=== PATIENT | male | born 1975 | race Caucasian/White ===

== ENCOUNTER 2018-05-19 23:27 | Emergency (ER) | payer OTHER ==
[~2018-05-19] VITALS: Ht 182.9 cm; Wt 86.2 kg
[2018-05-19 23:41] VITALS: BP 120/84
--- NOTE | 2018-05-20 00:09 | Emergency Room Report ---
History of Present Illness General Chief Complaint: Laceration Source: Patient Present Illness HPI Is a 42-year-old male who is right-hand dominant. He presents with chief point of laceration to his thumb and index finger. He was cleaning dishes at the restaurant. There was a broken stem from a glass. He try to pull it up but it was stuck and he in the slicing his fingers. This occurred just prior to arrival. Bleeding is stopped with the spray and pressure. No nausea no vomiting. No other injury. Pain is throbbing nature. 5 out of 10. Denies any other complaint. Pressure made it better. Allergies: Coded Allergies: No Known Allergies (Unverified , 05/19/18) Patient History Past Medical History: see triage record, old chart reviewed Past Surgical History: none Pertinent Family History: none Social History: Denies: smoking Immunizations: UTD Reviewed Nursing Documentation: PMH: Agreed; PSxH: Agreed Nursing Documentation-PMH Past Medical History: No Stated History Review of Systems Eye: Denies: eye pain, blurred vision ENT: Denies: ear pain, nose congestion, throat swelling Respiratory: Denies: cough, shortness of breath Cardiovascular: Denies: chest pain, palpitations Gastrointestinal: Denies: abdominal pain, diarrhea, nausea, vomiting Musculoskeletal: Denies: back pain, joint pain Skin: Denies: rash Neurological: Denies: headache, numbness Endocrine: Denies: increased thirst, increased urine Hematologic/Lymphatic: Denies: easy bruising All Other Systems: negative except mentioned in HPI Physical Exam Vital Signs Date Time Temp Pulse Resp B/P (MAP) Pulse Ox O2 Delivery O2 Flow Rate FiO2 05/19/18 23:29 98.1 86 16 120/84 97 05/19/18 23:41 Room Air vitals normal Sp02 EP Interpretation: reviewed, normal General Appearance: well appearing, no apparent distress, alert Head: normocephalic, atraumatic Eyes: bilateral eye PERRL, bilateral eye EOMI ENT: hearing grossly normal, normal pharynx Neck: full range of motion, supple, no meningismus Respiratory: chest non-tender, lungs clear, normal breath sounds Cardiovascular #1: regular rate, rhythm, no murmur Gastrointestinal: normal bowel sounds, non tender, no mass, no organomegaly, no bruit, non-distended Musculoskeletal: back normal, gait/station normal, normal range of motion, other - Left thumb. There is a 1 cm well approximated laceration over the pad. Neurologic: alert, oriented x3 Psychiatric: mood/affect normal Skin: warm/dry Procedures Laceration/Wound Repair Laceration/Wound Repair : Consent: Verbal Wound Location: upper extremity Wound's Depth, Shape: superficial Wound Length (cm): 2 Wound Explored: clean Wound Repaired With: Dermabond Patient Tolerated: Well Complications: None Medical Decision Making Diagnostic Impression: Primary Impression: Laceration of finger of left hand Qualified Codes: S61.012A - Laceration without foreign body of left thumb without damage to nail, initial encounter ER Course Patient presents with laceration of his fingers. Superficial. I closed with a Kwan. No evidence of any foreign body. Tetanus up-to-date. We'll discharge home. Last Vital Signs Date Time Temp Pulse Resp B/P (MAP) Pulse Ox O2 Delivery O2 Flow Rate FiO2 05/19/18 23:41 98.0 86 16 120/84 97 Room Air Status: improved Disposition: HOME, SELF-CARE Condition: Stable Patient Instructions: Laceration Care, Adult Additional Instructions: Follow-up with workman's comp doctor in 2-3 days for recheck. Return if worse. Do not put ointment on skin adhesive. Keep dry. Return if worse. Barrett Leggett MD May 20, 2018 00:09
[2018-05-20 00:20] VITALS: BP 120/84
== END 2018-05-20 00:17 | disposition home or self-care (01) ==
LOC: EMR 23:50
DX: S61.012A Laceration without foreign body of left thumb without damage to nail, initial encounter (principal); S61.211A Laceration without foreign body of left index finger without damage to nail, initial encounter; W25.XXXA Contact with sharp glass, initial encounter; Y93.9 Activity, unspecified; Y92.9 Unspecified place or not applicable; Y99.0 Civilian activity done for income or pay
CPT/HCPCS: 99283

== ENCOUNTER 2018-05-25 14:50 | Emergency (ER) | payer OTHER ==
[~2018-05-25] VITALS: Ht 182.9 cm; Wt 86.2 kg
[2018-05-25] MEDS ORDERED: BACITRACIN-P28.35 GM TP (15:18)
--- NOTE | 2018-05-25 15:18 | Emergency Room Report ---
History of Present Illness General Chief Complaint: wound check Present Illness HPI 42-year-old male patient presents ER requesting wound check for clearance return to work. Patient was seen here ago for laceration on left hand of thumb and index finger. Reports was repaired with Dermabond sutures placed. denies loss of range of motion. Denies erythema or edema. reports right-hand dominant. Reports was sent here by his job for clearance to return to work. denies worsening of pain. Denies erythema or edema. denies fever, chest pain, shortness of breath. Allergies: Coded Allergies: No Known Allergies (Unverified , 05/19/18) Patient History Past Medical History: see triage record Reviewed Nursing Documentation: PMH: Agreed; PSxH: Agreed Review of Systems All Other Systems: negative except mentioned in HPI Physical Exam Vital Signs Date Time Temp Pulse Resp B/P (MAP) Pulse Ox O2 Delivery O2 Flow Rate FiO2 05/25/18 15:10 98.2 87 16 112/73 96 Room Air Sp02 EP Interpretation: reviewed, normal General Appearance: well appearing, no apparent distress, alert, GCS 15, non- toxic Head: normocephalic, atraumatic Eyes: bilateral eye normal inspection, bilateral eye PERRL ENT: hearing grossly normal, normal pharynx, no angioedema, normal voice, uvula midline, moist mucus membranes Neck: full range of motion Respiratory: lungs clear, normal breath sounds, no rhonchi, no respiratory distress, no accessory muscle use, no wheezing, speaking full sentences Cardiovascular #1: regular rate, rhythm, no edema Cardiovascular #2: 2+ radial (R), 2+ radial (L) Skin: laceration - left thumb and index finger: small superficial once a minutes lacerations on the fat pad of fingers, no erythema or edema, no drainage , tenderness to palpation, no signs of infection, small scabbing Medical Decision Making PA Attestation Dr. Awan is my supervising Physician whom patient management has been discussed with. Diagnostic Impression: Primary Impression: Encounter for wound re-check ER Course Pt. presents to the ED requesting wound check of left thumb and index finger. Ddx considered but are not limited to cellulitis, abscess, wound check, folliculitis. No fusiform swelling, no TTP along flexor tendon, no pain wtih extension, finger not held in flexion, low suspicion for flexor tenosynovitis. Vital signs: are WNL, pt. is afebrile Ordered Bacitrain. ER COURSE: Wound has no signs of infection., no erythema, edema, TTP, sensation is intact to light touch. informed patient is to follow-up with Workmen's Compensation physician for clearance to return to work. Apply Neosporin to wound to reduce appearance of scar. keep clean and dry. ER precautions given. DISCHARGE: Rx provided for Bacitracn Patient instructed to continue with medications per initial ER provider instructions. At this time pt. is stable for d/c to home. Patient resting comfortably, in no acute distress, nontoxic appearing. Will provide printed patient care instructions and any necessary prescriptions. Care plan and follow up instructions have been discussed with the patient prior to discharge. Patient instructed to follow-up with primary care provider for further treatment and referral. Patient questions asked and answered. ER precautions given. Patient instructed to return to ER immediately for any new or worsening of symptoms including but not limited to fever, worsening of pain symptoms. - Please note that this Emergency Department Report was dictated using [employer] technology software, occasionally this can lead to erroneous entry secondary to interpretation by the dictation equipment. Disposition: HOME, SELF-CARE Condition: Stable Scripts Bacitracin/Polymyxin B Sulfate (BACITRACIN-POLYMYXIN OINTMENT) 28.35 Gm Oint...g. 1 APPLIC TP BID, #28 GM Prov: Denis Chin 05/25/18 Patient Instructions: Nonsutured Laceration Care, Wound Check Additional Instructions: Followup with Workmen's Compensation physician for clearance to return to work. ER cannot provide medical clearance for return to work activities, must come from Workmen's Compensation physician. Keep wound clean and dry. Apply Neosporin to help reduce appearance of scar. Take medications as directed. Patient questions asked and answered. ER precautions given, patient instructed to return to ER immediately for any new or worsening of symptoms. Denis Chin May 25, 2018 15:18
[2018-05-25 15:20] VITALS: BP 112/73
[2018-05-25 15:22] VITALS: BP 112/73
== END 2018-05-25 15:30 | disposition home or self-care (01) ==
LOC: EMR 15:16
DX: S61.012D Laceration without foreign body of left thumb without damage to nail, subsequent encounter (principal); S61.211D Laceration without foreign body of left index finger without damage to nail, subsequent encounter; X58.XXXD Exposure to other specified factors, subsequent encounter; Z48.02 Encounter for removal of sutures
CPT/HCPCS: 99283